=== PATIENT | male | born 1980 | race Caucasian/White ===

== ENCOUNTER 2016-04-30 14:39 | Emergency (ER) | payer OTHER ==
[2016-04-30 14:51] VITALS: BP 117/59; PULSE 52; TEMP 98; BMI 26.2
--- NOTE | 2016-04-30 14:53 | PDOC ---
Rapid Medical Evaluation Chief Complaint: Pain Time Seen by Provider: 04/30/16 14:49 Medical Evaluation: Allergies Allergy/AdvReac Type Severity Reaction Status Date / Time No Known Allergies Allergy Verified 04/30/16 14:48 Vital Signs Temp Pulse Resp BP Pulse Ox 98 F 52 L 18 117/59 100 04/30/16 14:49 04/30/16 14:49 04/30/16 14:49 04/30/16 14:49 04/30/16 14:49 04/30/16 14:52 Otherwise healthy 35 year old male with two weeks of left hand pain s/p basketball injury, worsening after trying to open jar of peanut butter. Wearing friend's splint with some relief. Tender over lunate bone. -Hand/wrist xray -To FT for further evaluation
--- NOTE | 2016-04-30 16:03 | PDOC ---
History of Present Illness - General Chief Complaint: Pain Stated Complaint: LT HAND PAIN Time Seen by Provider: 04/30/16 14:49 History Source: Patient Exam Limitations: No Limitations - History of Present Illness Initial Comments: 04/30/16 15:58 Patient complaints of left hand pain. States 2 weeks ago was playing basketball with an aggressive game, and then did some other exercises and had an onset of pain and swelling to left mid hand. Denies any specific acute injury, has been using ibuprofen for pain relief and a splints with minimal resolved. Patient denies swelling, black and blue, but states feels has a mild deformity to the upper aspect of his left mid hand. Occurred: reports: last week Severity: reports: mild, moderate Past History - Past Medical History Allergies/Adverse Reactions: Allergies Allergy/AdvReac Type Severity Reaction Status Date / Time No Known Allergies Allergy Verified 04/30/16 14:48 Home Medications: Ambulatory Orders NK [No Known Home Medication] 04/30/16 - Psycho/Social/Smoking Cessation Hx Anxiety: No Suicidal Ideation: No Smoking History: Never smoked Have you smoked in the past 12 months: No Information on smoking cessation initiated: No Hx Alcohol Use: No Drug/Substance Use Hx: No Substance Use Type: Alcohol Review of Systems - Review of Systems Able to Perform ROS?: No Is the patient limited Maltese proficient: No Constitutional: Yes: Symptoms Reported, Malaise HEENTM: No: Symptoms Reported Integumentary: Yes: Symptoms Reported All Other Systems: Reviewed and Negative *Physical Exam - Vital Signs Last Vital Signs Temp Pulse Resp BP Pulse Ox 98 F 52 L 18 117/59 100 04/30/16 14:49 04/30/16 14:49 04/30/16 14:49 04/30/16 14:49 04/30/16 14:49 - Physical Exam General Appearance: Yes: Nourished, Appropriately Dressed, Apparent Distress, Mild Distress HEENT: positive: INA, Normal ENT Inspection, TMs Normal, Pharynx Normal Neck: positive: Tender, Supple. negative: Lymphadenopathy (R), Lymphadenopathy (L) Respiratory/Chest: positive: Lungs Clear Extremity: positive: Normal Capillary Refill, Tender (2 range of motion and lateral movement at wrist. Has strong grasp, flexion and extension, no crepitus or step-offs and no obvious deformity to hand metacarpals or fingers. Neurovascular intact to all digits. Able to supinate and pronate at wrist joint without pain.). negative: Swelling Integumentary: positive: Normal Color. 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 NML intact, Fully Oriented, Alert, Normal Mood/ Affect, Normal Response, Motor Strength 5/5 Progress Note - Progress Note Progress Note: Hand strain, will treat conservatively as there is no evidence of acute ionjury in x-ray *DC/Admit/Observation/Transfer Diagnosis at time of Disposition: Strain of hand, left Qualifiers: Encounter type: initial encounter Qualified Code(s): S66.912A - Strain of unspecified muscle, fascia and tendon at wrist and hand level, left hand, initial encounter - Discharge Dispostion Disposition: HOME Condition at time of disposition: Stable Admit: No - Referrals Referrals: Raul Brown MD [Staff Physician] - - Patient Instructions Printed Discharge Instructions: DI for Hand Pain Additional Instructions: Rest, ice to area on and off for 15 minutes 4-6 times a day Avoid heavy lifting or exercise until pain and swelling is resolved or until further directed Keep area highly elevated to reduce swelling Use splints/Naldo wrap as directed Followup with orthopedist in one to 2 days if not improving, if significantly improved may wait one week for followup with orthopedist May use ibuprofen 2-200 mg tablets every 6 hours as needed for pain
== END 2016-04-30 16:12 | disposition home or self-care (01) ==
LOC: JERFT 14:39
DX: S66.912A Strain of unspecified muscle, fascia and tendon at wrist and hand level, left hand, initial encounter (principal); X58.XXXA Exposure to other specified factors, initial encounter; Y93.9 Activity, unspecified; Y92.9 Unspecified place or not applicable
CPT/HCPCS: 73110-TC-LT; 73130-TC-LT; 99281-25